=== PATIENT | female | born 1960 | race Two or more races ===

== ENCOUNTER → 2024-09-05 | Outpatient (CLI) | payer MEDICAID ==
[~2024-09-05] MED LIST: ALBU1.258 IN; ALBU108A14 IN; AMLO1TAB23 PO; ATOR20TA50 PO; CHOL50007 PO; DOCU100T15 PO; HYDR-4072 PO; INSU1.2I SC; INSU100I4 SC; LISI40TA16 PO; MAGN1CAP3 PO; MODA200T73 PO; MONT-8 PO; OMEG-20 PO; TIOT1AER2 IN
[2024-09-05 13:59] LABS: Alanine Aminotransferase 14 U/L (7-40); Albumin 4.3 g/dL (3.2-4.8); Alkaline Phosphatase 92 U/L (46-116); Anion Gap 9 (5-15); Aspartate Aminotransferase 10 U/L (13-40); BUN/Creatinine Ratio 19.6 (10.0-20.0); Bilirubin, Total 0.5 mg/dL (0.2-1.0); Blood Urea Nitrogen 28 mg/dL (9-23); Calcium 10.1 mg/dL (8.7-10.4); Carbon Dioxide 21 mmol/L (20-31); Chloride 110 mmol/L (98-107); Glucose 139 mg/dL (74-106); Sodium 140 mmol/L (136-145); Total Protein 7.4 g/dL (5.7-8.2)
== END | disposition home or self-care (01) ==
LOC: LAB 13:14
PROVIDERS: ATTEND Internal Medicine
DX: E66.01 Morbid (severe) obesity due to excess calories (principal)
CPT/HCPCS: 36415; 80053

== ENCOUNTER → 2024-11-01 | Outpatient (CLI) | payer MEDICAID ==
[2024-11-01 12:18] LABS: Urine Bacteria None Seen /hpf (None Seen)
[2024-11-01 12:23] LABS: Basophils # (auto) 0.1 10 ^3/uL (0-0.2); Basophils % (auto) 0.7 % (0.0-2.0); Eosinophils # (auto) 0.1 10 ^3/uL (0-0.8); Eosinophils % (auto) 1.7 % (0.0-7.0); Hematocrit 45.4 % (36.0-46.0); Hemoglobin 15.4 g/dL (12.2-16.2); Lymphocytes # (auto) 2.5 10 ^3/uL (0.4-5.4); Lymphocytes % (auto) 29.3 % (10.0-50.0); Mean Corpuscular Hemoglobin 30.4 pg (28.0-32.0); Mean Corpuscular Hgb Conc. 33.9 g/dL (32.0-36.0); Mean Corpuscular Volume 89.7 fL (80.0-100.0); Monocytes # (auto) 0.5 10 ^3/uL (0-1.3); Monocytes % (auto) 5.6 % (0.0-12.0); Neutrophils # (auto) 5.4 10 ^3/uL (1.6-8.6); Neutrophils % (auto) 62.7 % (37.0-80.0); Platelet Count (auto) 240 10^3/uL (140-450); Red Blood Cells 5.06 10^6/uL (4.0-5.20); Red Cell Distribution Width 14.1 % (11.8-14.3); White Blood Cell 8.6 10^3/uL (4.4-10.8)
[2024-11-01 12:41] LABS: Urine Blood TRACE /uL (Negative); Urine Clarity Clear (Clear); Urine Color Light-Yellow (Yellow); Urine Protein, UAD Negative (Negative); Urine Specific Gravity 1.019 (1.001-1.035); Urine Urobilinogen Normal (Negative); Urine WBC 1 /hpf (0 - 5)
[2024-11-01 13:12] LABS: Alanine Aminotransferase 14 U/L (7-40); Albumin 4.3 g/dL (3.2-4.8); Alkaline Phosphatase 99 U/L (46-116); Anion Gap 7 (5-15); Aspartate Aminotransferase 13 U/L (13-40); BUN/Creatinine Ratio 21.9 (10.0-20.0); Calcium 9.9 mg/dL (8.7-10.4); Carbon Dioxide 26 mmol/L (20-31); Chloride 106 mmol/L (98-107); Cholesterol 161 mg/dL (< 200); Creatine Kinase IFCC 76 U/L (34-145); HDL Cholesterol 45 mg/dL (40-59); LDL Cholesterol 93 mg/dL (< 100); Sodium 139 mmol/L (136-145); Triglycerides 137 mg/dL (< 150)
[2024-11-01 13:13] LABS: Bilirubin, Total 0.6 mg/dL (0.2-1.0); Total Protein 7.4 g/dL (5.7-8.2)
[2024-11-01 13:14] LABS: Blood Urea Nitrogen 30 mg/dL (9-23); Folate (Folic Acid) 12.39 ng/mL (>5.38); Glucose 181 mg/dL (74-106)
[2024-11-01 13:15] LABS: Ferritin 73.8 ng/mL (10-291); Free T3 3.47 pg/mL (2.3-4.2)
[2024-11-01 13:22] LABS: % Iron Saturation 28.6 % (15-50)
== END | disposition home or self-care (01) ==
LOC: LAB 11:46
PROVIDERS: ATTEND Internal Medicine
DX: Z00.01 Encounter for general adult medical examination with abnormal findings (principal); E11.69 Type 2 diabetes mellitus with other specified complication; E78.5 Hyperlipidemia, unspecified; E66.01 Morbid (severe) obesity due to excess calories
CPT/HCPCS: 36415; 80053; 80061; 81001; 82043; 82306; 82550; 82607; 82728; 82746; 83036; 83540; 83550; 84436; 84443; 84481; 85025; 87086

== ENCOUNTER → 2025-01-30 | Outpatient (CLI) | payer MEDICAID ==
[2025-01-30 15:38] LABS: Urine Bacteria None Seen /hpf (None Seen)
[2025-01-30 16:28] LABS: Urine Blood Negative /uL (Negative); Urine Clarity Clear (Clear); Urine Color Colorless (Yellow); Urine Protein, UAD Negative (Negative); Urine Specific Gravity 1.016 (1.001-1.035); Urine Squamous Epithelial Cell FEW /hpf (<5); Urine Urobilinogen Normal (Negative)
[2025-01-30 16:48] LABS: Triglycerides 143 mg/dL (< 150)
[2025-01-30 16:49] LABS: Alanine Aminotransferase 12 U/L (7-40); Albumin 4.7 g/dL (3.2-4.8); Alkaline Phosphatase 83 U/L (46-116); Anion Gap 10 (5-15); Aspartate Aminotransferase 13 U/L (13-40); BUN/Creatinine Ratio 30.2 (10.0-20.0); Blood Urea Nitrogen 42 mg/dL (9-23); Carbon Dioxide 22 mmol/L (20-31); Chloride 107 mmol/L (98-107); Cholesterol 172 mg/dL (< 200); Creatine Kinase IFCC 58 U/L (34-145); Glucose 157 mg/dL (74-106); HDL Cholesterol 41 mg/dL (40-59); LDL Cholesterol 109 mg/dL (< 100); Sodium 139 mmol/L (136-145); Total Protein 7.8 g/dL (5.7-8.2)
[2025-01-30 16:50] LABS: Bilirubin, Total 0.3 mg/dL (0.2-1.0)
[2025-01-30 16:53] LABS: Free T3 3.55 pg/mL (2.3-4.2)
[2025-01-30 16:54] LABS: Free T4 (Free Thyroxine) 1.33 ng/dL (0.89-1.76)
== END | disposition home or self-care (01) ==
LOC: LAB 15:18
PROVIDERS: ATTEND Internal Medicine
DX: E11.69 Type 2 diabetes mellitus with other specified complication (principal); E78.5 Hyperlipidemia, unspecified; J32.9 Chronic sinusitis, unspecified; E66.01 Morbid (severe) obesity due to excess calories; Z00.01 Encounter for general adult medical examination with abnormal findings; Z77.120 Contact with and (suspected) exposure to mold (toxic)
CPT/HCPCS: 36415; 80053; 80061; 81001; 82306; 82550; 82785; 83036; 84439; 84443; 84481; 86003; 87086

== ENCOUNTER 2025-10-07 10:38 | Emergency (ER) | payer MEDICAID ==
[~2025-10-07] VITALS: Ht 170.2 cm; Wt 118.0 kg
--- NOTE | 2025-10-07 12:15 | ED.PDOC ---
Back pain HPI HPI Comments 65-year-old female brought in by ambulance with a prior MHx of multiple sclerosis in the chief complaint of neck pain. The patient reports on having had constant trapezius pain which radiates to the mid back which was severe and may for which subsided but the patient had a recent flare-up on Tuesday of 10/02/2025. The patient states that this flare-up is worse than the one before and that is constant and will not stop. Patient notes on taking her Flexeril of 10 mg and [place] 5 mg with temp relief . The patient states that after the 1st occasion she did see her PCP for which referred her to see a neurologist at [facility] for her having multiple sclerosis. Denies any other symptoms at this time. De nies chills, fever, N/V/D, CP, SOB. Chief Complaint: Neck Pain Time Seen by MD: 12:00 Reviewed Notes: Nurses Notes, Tapeman Notes, Medications, Allergies Allergies: Coded Allergies: Butorphanol (Verified Allergy, Unknown, 10/22/21) Iodine (Verified Allergy, Unknown, 10/22/21) IV DYE ONLY, OK WITH TOPICAL Meperidine (Verified Allergy, Unknown, 10/22/21) Uncoded Allergies: GREEN PEAS (Allergy, Unknown, 10/23/21) Home Meds Active Scripts Cyclobenzaprine Hcl (Cyclobenzaprine Hcl) 10 Mg Tab, 10 MG PO QHSP PRN for 10 Days, #10 TAB 0 Refills Prov:MAVIS FAJARDO WINDOW TREATMENT INSTALLER 10/07/25 Reported Medications Albuterol Sulfate (Albuterol Sulfate) 1.25 Mg/3 Ml Neb, 2.5 MG IN QID, INH 10/22/21 Docusate Sodium (Docusate Sodium) 100 Mg Tab, 100 MG PO TIDPRN PRN for FOR CONSTIPATION for 30 Days, MG 10/22/21 Tiotropium [place] Monohydrate (Spiriva Respimat) 1.25 Mcg/Act Aer, 1.25 MCG IN DAILY, AER 10/22/21 Modafinil (MODAFINIL) 200 Mg Tab, 200 MG PO DAILY, TAB 10/22/21 Cholecalciferol (VITAMIN D3) 5,000 Unit Cap, 5000 UNIT PO, CAP 10/22/21 Magnesium Oxide (Magnesium Oxide) 500 Mg Cap, 500 MG PO DAILY, CAP 10/22/21 Joanna-3 Fatty Acids (FISH OIL) 1,000 Mg Cap, 1000 MG PO DAILY, CAP 10/22/21 Insulin Glargine (Toujeo Solostar) 300 Unit/Ml Inj, 20 UNIT SC QAM, INJ 10/22/21 Albuterol Sulfate (Proair Digihaler) 108 Mcg/Act Aer, 90 MCG IN PRN, AER 10/22/21 Montelukast Sodium (MONTELUKAST SODIUM) 10 Mg Tab, 1 TAB PO DAILY, #30 TAB 5 Refills 10/22/21 Hydrocodone-Acetaminophen (Hydrocodone/Acetaminophen 10-325 mg) 1 Tab Tab, 10- 325 MG PO PRN 10/22/21 Lisinopril (Lisinopril) 40 Mg Tab, 40 MG PO DAILY for 30 Days, MG 10/22/21 Insulin Lispro (Humalog Kwikpen) 100 Unit/Ml Inj, 100 UNIT SC, INJ 10/22/21 Atorvastatin Calcium (ATORVASTATIN CALCIUM) 20 Mg Tab, 1 TAB PO DAILY, #30 TAB 5 Refills 10/22/21 Amlodipine Besylate (Amlodipine Besylate) 10 Mg Tab, 1 TAB PO DAILY, #30 TAB 5 Refills 10/22/21 Information Source: Patient, Emergency Med Personnel Mode of Arrival: EMS Timing: Days Duration: Since onset, Days Severity: Moderate Prehospital treatment: None Quality: Aching Onset: Spontaneous History of: None Associated signs and symptoms: None Past Medical History Past Medical History (Other): Multiple sclerosis Surgical History: Denies all surgeries SCHOOL AIDE History: No Pertinent SCHOOL AIDE History Family History Family History: Reviewed,noncontributory to illness, Unknown Social History Smoker: Non-Smoker Alcohol: Denies ETOH Use Drugs: Denies Drug Use Lives In: Home Constitutional: denies: chills, diaphoresis, fatigue, fever, malaise, sweats, weakness, others EENTM: denies: blurred vision, double vision, ear bleeding, ear discharge, ear drainage, ear pain, ear ringing, eye pain, eye redness, hearing loss, mouth pain, mouth swelling, nasal discharge, nose bleeding, nose congestion, nose pain, photophobia, tearing, throat pain, throat swelling, voice changes, others Respiratory: reports: shortness of breath; denies: cough, hemoptysis, orthopnea, SOB at rest, SOB with excertion, stridor, wheezing, others Cardiovascular: denies: chest pain, dizzy spells, diaphoresis, Dyspnea on exertion, edema, irregular heart beat, left arm pain, lightheadedness, palpitations, PND, syncope, others Gastrointestinal: denies: abdomen distended, abdominal pain, blood streaked bowels, constipated, diarrhea, dysphagia, difficulty swallowing, hematemesis, melena, nausea, poor appetite, poor fluid intake, rectal bleeding, rectal pain, vomiting, others Genitourinary: denies: abnormal vagina bleeding, burning, dyspareunia, dysuria, flank pain, frequency, hematuria, incontinence, pain, , vagina discharge, urgency, others Neurological: denies: dizziness, fainting, headache, left sided numbness, left sided weakness, numbness, paresthesia, pre-existing deficit, right sided numbness, right sided weakness, seizure, speech problems, tingling, tremors, weakness, others Musculoskeletal: reports: back pain, neck pain; denies: gout, joint pain, joint swelling, muscle pain, muscle stiffness, others Integumetry: denies: bruises, change in color, change in hair/nails, dryness, laceration, lesions, lumps, rash, wounds, others Allergic/Immunocompromised: denies: Difficulty Healing, Frequent Infections, H shama, Itching, others Hematologic/Lymphatic: denies: anemia, blood clots, easy bleeding, easy bruising, swollen glands, others Endocrine: denies: excessive hunger, excessive sweating, excessive thirst, excessive urination, flushing, intolerance to cold, intolerance to heat, unexplained weight gain, unexplained weight loss, others Psychiatric: denies: anxiety, bipolar disorder, depression, hopeless, panic disorder, schizophrenia, sleepless, suicidal, others All Other Systems: Reviewed and Negative Physical Exam Exam Comments Cervical neck is tender to touch, General Appearance: No Apparent Distress, Normal HEENT: Normal ENT Inspection, Pharynx Normal, TMs Normal Neck: Full Range of Motion, Non-Tender, Normal, Normal Inspection Respiratory: Chest Non-Tender, Lungs Clear, No Accessory Muscle Use, No Respi ratory Distress, Normal Breath Sounds Cardiovascular: No Edema, No JVD, No Murmur, No Gallop, Normal Peripheral Pulses, Regular Rate/Rhythm Breast Exam: Deferred Gastrointestinal: No Organomegaly, Non Tender, No Pulsatile Mass, Normal Bowel Sounds, Soft Genitalia: Deferred Pelvic: Deferred Rectal: Deferred Extremities: No calf tenderness, Normal capillary refill, Normal inspection, Normal range of motion, Non-tender, No pedal edema Musculoskeletal : Apperance: Normal Neurologic: Alert, porter head II-XII nml as Tested, No Motor Deficits, Normal Affect, Normal Mood, No Sensory Deficits Cerebellar Function: Normal Reflexes: Normal Skin: Dry, Normal Color, Warm Lymphatic: No Adenopathy Was a procedure done? Was a procedure done?: No Back Pain Differential Dx Differential Diagnosis: Musculoskeletal Pain, Strain, Other X-Ray, Labs, Meds, VS Vital Signs Date Time Temp Pulse Resp B/P (MAP) Pulse Ox O2 Delivery O2 Flow Rate FiO2 10/07/25 17:13 98.7 78 98.7 10/07/25 15:40 78 16 152/98 10/07/25 14:42 99.0 83 16 114/38 (63) 95 99.0 10/07/25 12:31 89 17 143/87 10/07/25 10:45 98.4 108 18 124/74 98 98.4 Lab Test 10/07/25 14:26 10/07/25 13:31 Range/Units Urine Color Yellow Yellow Urine Clarity Turbid H Clear Urine pH 5.0 5.0-9.0 Urine Specific [place] 1.019 1.001-1.035 Urine Protein Negative Negative Urine Ketones Trace Negative Urine Blood Negative Negative /uL Urine Nitrite Negative Negative Urine Bilirubin Negative Negative Urine Urobilinogen Normal Negative mg/dL Urine Leukocyte Esterase Negative Negative /uL Urine RBC 1 0 - 4 /hpf Urine Microscopic WBC 1 0-5 /HPF Urine Squamous Epithelial Cells Mod <5 /hpf Urine Transitional Epithelial Cells Few <2 /hpf Urine Amorphous Crystals Few None Seen /hpf Urine Bacteria None seen None Seen /hpf Urine Hyaline Casts Few 0 - 2 /lpf Urine Mucus Few None Seen Urine Glucose Normal Normal mg/dL White Blood Count 12.5 H 4.4-10.8 10^3/uL Red Blood Count 4.57 4.0-5.20 10^6/uL Hemoglobin 13.5 12.2-16.2 g/dL Hematocrit 40.7 36.0-46.0 % Mean Corpuscular Volume 89.1 80.0-100.0 fL Mean Corpuscular Hemoglobin 29.6 28.0-32.0 pg Mean Corpuscular Hemoglobin Concent 33.2 32.0-36.0 g/dL Red Cell Distribution Width 13.3 11.8-14.3 % Platelet Count 288 140-450 10^3/uL Mean Platelet Volume 7.8 6.9-10.8 fL Neutrophils (%) (Auto) 77.1 37.0-80.0 % Lymphocytes (%) (Auto) 15.4 10.0-50.0 % Monocytes (%) (Auto) 7.0 0.0-12.0 % Eosinophils (%) (Auto) 0.2 0.0-7.0 % Basophils (%) (Auto) 0.3 0.0-2.0 % Neutrophils # (Auto) 9.6 H 1.6-8.6 10 ^3/uL Lymphocytes # (Auto) 1.9 0.4-5.4 10 ^3/uL Monocytes # (Auto) 0.9 0-1.3 10 ^3/uL Eosinophils # (Auto) 0 0-0.8 10 ^3/uL Basophils # (Auto) 0 0-0.2 10 ^3/uL Nucleated Red Blood Cells 0.0 % Sodium Level 138 136-145 mmol/L Potassium Level 3.3 L 3.5-5.1 mmol/L Chloride Level 103 98-107 mmol/L Carbon Dioxide Level 24 20-31 mmol/L Anion Gap 11 5-15 Blood Urea Nitrogen 20 9-23 mg/dL Creatinine 1.16 H 0.550-1.02 mg/dL Glomerular Filtration Rate Calc 52 >90 mL/min BUN/Creatinine Ratio 17.2 10.0-20.0 Serum Glucose 134 H 74-106 mg/dL Calcium Level 9.4 8.7-10.4 mg/dL X-Ray, Labs, Meds, VS Comment 65-year-old female brought in by ambulance with a prior MHx of multiple sclerosis in the chief complaint of neck pain. Patient arrives alert and oriented, ABC's intact, afebrile, vital signs stable, saturating well in room air Peripheral IV insertion+ labs were ordered. CBC was ordered to exclude anemia, blood loss, or infection. BMP was ordered to exclude electrolyte abnormalities, renal failure, dehydration, hyperglycemia Urinalysis was ordered to rule out UTI or hematuria. Diagnostic imaging ordered by me and results interpreted by radiology : Chest x-ray, cervical spine x-ray + neck pain radiating down the affected upper extremity Denies numbness and weakness. ED Workup: Defer C-Spine imaging given negative by NEXUS criteria Given History, Exam the patient appears to have a cervical radiculopathy. Patient appears to be low risk for complications or other emergent conditions such as anginal equivalent, kimberly cervical instability, arterial dissection, osteomyelitis, epidural abscess, central cord syndrome, c-spine fracture, CVA, other spinal emergencies Rx: NSAIDs, outpatient physical therapy evaluation and recommendation for home exercises in the interim Disposition: Discharge. The patient has been given strict return precautions and understands the need to follow up within 48 hours with their primary care provider Additional MDM Review of External, Non-ED records: External records reviewed. Discussion with independent historian (EMS, family) history obtained from the patient/parents (if applicable) at bedside Chronic conditions affecting care: None Social determinants of health affecting care: None Consideration of admission (observation or admission): I considered escalation of care to admission for this patient, however given the reassuring workup, the patient is safe for outpatient management. Discussion with the Radiology: No Tests considered but not performed: Prescription medication considered but not given: 12 lead EKG interpretation: Time of 1ST Reevaluation: 12:30 Reevaluation 1ST: Unchanged Patient Education/Counseling: Diagnosis, Treatment, Prognosis Family Education/Counseling: No Family Present SEPSIS Sepsis Screen Date sepsis recognized/suspect: Oct 07, 2025 Time Sepsis recognized/suspect: 1048 Recent Procedure: No On Antibiotic Therapy: No Respiratory Rate >20: No Heart Rate >90: Yes Temp<36 C (96.8 F) or >38.3 C: No SBP <90 or MAP <65 mmHG: No New Acute Mental Status Change: No Is the patient on CPAP, BIPAP,: No Physician Orders Chest Xray 1 View (10/07/25 12:04) Cervical Spine 3v (10/07/25 12:04) Vital Signs Date Time Temp Pulse Resp B/P (MAP) Pulse Ox O2 Delivery O2 Flow Rate FiO2 10/07/25 17:13 98.7 78 98.7 10/07/25 15:40 78 16 152/98 10/07/25 14:42 99.0 83 16 114/38 (63) 95 99.0 11/17/25 12:31 89 17 143/87 10/07/25 10:45 98.4 108 18 124/74 98 98.4 Laboratory Tests Test 10/07/25 13:31 White Blood Count 12.5 10^3/uL (4.4-10.8) H Departure 1 Departure Time of Disposition: 16:56 Impression: Primary Impression: Cervical radiculopathy Disposition: HOME / SELF CARE / HOMELESS Condition: Stable e-Prescriptions Cyclobenzaprine Hcl (Cyclobenzaprine Hcl) 10 Mg Tab 10 MG PO QHSP PRN for 10 Days, #10 TAB 0 Refills Prov: MAVIS FAJARDO NP 10/07/25 Critical Care Note Critical Care Time?: No Stability Stability form required: No Heart Score Heart Score: Heart Score Response (Comments) Value History N/A 0 EKG N/A 0 Age N/A 0 Risk Factors N/A 0 Troponin N/A 0 Total 0 I personally scribed for MAVIS FAJARDO NP ([email or web address]) on 10/07/25 at 12:15. Electronically submitted by Joaquín Toledo ([email or web address]). MAVIS FAJARDO NP Oct 07, 2025 12:15
[2025-10-07] MEDS: MORPHINE SULFATE 4 MG/ML SYR/VIAL IM ONE (12:31)
--- NOTE | 2025-10-07 12:49 | DVH ---
INDICATION: Pain TECHNIQUE: 5 views of the cervical spine were obtained. COMPARISON: None FINDINGS: No fracture. Grade 1 anterolisthesis at C3 on C4. Severe degenerative changes throughout the cervical spine. IMPRESSION: No acute fracture or subluxation
[2025-10-07 13:53] LABS: Hematocrit 40.7 % (36.0-46.0); Hemoglobin 13.5 g/dL (12.2-16.2); Mean Corpuscular Hemoglobin 29.6 pg (28.0-32.0); Mean Corpuscular Volume 89.1 fL (80.0-100.0); Nucleated Red Blood Cells % 0.0 %
[2025-10-07 13:57] LABS: Chloride 103 mmol/L (98-107); Sodium 138 mmol/L (136-145)
[2025-10-07 13:58] LABS: Anion Gap 11 (5-15); Calcium 9.4 mg/dL (8.7-10.4); Carbon Dioxide 24 mmol/L (20-31)
[2025-10-07 13:59] LABS: Potassium 3.3 mmol/L (3.5-5.1)
[2025-10-07 14:03] LABS: BUN/Creatinine Ratio 17.2 (10.0-20.0); Blood Urea Nitrogen 20 mg/dL (9-23); Glucose 134 mg/dL (74-106)
[2025-10-07 14:42] VITALS: O2SAT 95
[2025-10-07 15:40] VITALS: BP 152/98; RESP 16
[2025-10-07] MEDS: HYDROcodone-ACET 5/325MG TAB PO ONE (15:45)
[2025-10-07 16:22] LABS: Urine Amorphous Crystal FEW /hpf (None Seen); Urine Protein, UAD Negative (Negative)
[2025-10-07] MEDS ORDERED: CYCL-839 PO (16:57)
[2025-10-07 17:13] VITALS: PULSE 78; TEMP 98.7
--- NOTE | 2025-10-07 17:13 | DVH ---
On report CHEST RADIOGRAPH Indication: Pain Technique: Single frontal view of the chest was obtained Comparison: Report dated 06/28/2024 FINDINGS: Lines and Tubes: None Lungs: No focal consolidation. Pleura: No effusion. No pneumothorax. Cardiomediastinal contours: Unremarkable Bones: No acute osseous abnormality. IMPRESSION: 1. No acute cardiopulmonary disease. 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
== END 2025-10-07 17:16 | disposition home or self-care (01) ==
LOC: EDUNIT# 10:38 → ER 10:38 → EDBD 10:38 → ER 17:16
DX: M54.12 Radiculopathy, cervical region (principal); Z79.899 Other long term (current) drug therapy; Z88.5 Allergy status to narcotic agent; Z88.8 Allergy status to other drugs, medicaments and biological substances
CPT/HCPCS: 36415; 71045; 72040; 80048; 81001; 85025; 96372; 99285; J2270